=== PATIENT | male | born 1955 | race Caucasian/White ===

== ENCOUNTER 2025-05-12 10:01 | Inpatient (IN) | payer OTHER ==
[2025-05-12] MEDS ORDERED: ACETAMINOPHEN INJECTION 100 ML ONE (10:57)
[2025-05-12] MEDS: ACETAMINOPHEN 1000 MG/100 ML BAG IVPB ONE (10:58)
[2025-05-12] MEDS ORDERED: AMPICILLIN NA/SULBACTAM NA 3 GM/100 ML BAG IVPB ONE (11:05)
[2025-05-12] MEDS: AMPICILLIN NA/SULBACTAM NA 3 GM in SODIUM CHLORIDE 100 ML IVPB ONE (11:09)
[2025-05-12 11:22] LABS: ABSOLUTE IMMATURE GRANULOCYTES 0.07 x10^3/uL (0.0-0.031); BASOPHILS # 0.02 x10^3/uL (0.01-0.08); EOSINOPHIL % 0.6 % (0.8-7.0); EOSINOPHILS # 0.07 x10^3/uL (0.04-0.54); MCHC 32.9 g/dl (32.3-36.5); MEAN CELL VOLUME 91.0 fl (79.0-92.2); MEAN PLT VOLUME 9.5 fl (9.4-12.4); MONOCYTE # 0.80 x10^3/uL (0.30-0.82); MONOCYTE % 6.9 % (5.3-12.2); RDW 11.6 % (12.2-16.4)
[2025-05-12 12:20] LABS: CO2 27.0 mmol/L (21-32); GLUCOSE,RANDOM 185.0 mg/dL (74-106)
[2025-05-12 12:22] LABS: CREATININE 0.8 mg/dL (0.55-1.3); SGOT/AST 13.0 U/L (15-37); SGPT/ALT 23.0 U/L (13-61)
[2025-05-12 12:24] LABS: TOT PROT 7.0 g/dl (6.4-8.2)
[2025-05-12 12:25] LABS: ALK PHOS 77.0 U/L (45-117)
[2025-05-12 13:39] LABS: HIV INTERPRETATION NEGATIVE (NEGATIVE)
[2025-05-12 13:40] LABS: HCV DIAGNOSTIC IN-HOUSE W/RFLX NON-REACTIVE (NONREACTIVE)
[2025-05-12] MEDS: SODIUM CHLORIDE 1,000 ML IV SCH (14:21)
[2025-05-12 15:19] LABS: INR 1.23 (0.83-1.09); PROTHROMBIN TIME (PATIENT) 13.5 SEC (9.7-13.0)
[2025-05-12 15:22] LABS: ACTIVATED PTT 26.3 SECONDS (25.2-36.5)
[2025-05-12] MEDS ORDERED: ACETAMINOPHEN 325 MG TABLET (FP) ONE (15:41)
[2025-05-12] MEDS: ACETAMINOPHEN 325 MG TABLET (FP) PO PRN (15:43)
[2025-05-12] MEDS: PIPERACILLIN/TAZOB 4.5 GM 4.5 GM in DEXTROSE 5%-WATER 100 ML IVPB ONE (17:14)
[2025-05-12] MEDS: PIPERACILLIN/TAZOB 3.375 GM 3.375 GM in DEXTROSE 5%-WATER - 50 ML IVPB SCH (18:06)
[2025-05-12] MEDS: INSULIN ASPART SLIDING SCALE (NOVOLOG) 1 VIAL SQ SCH (18:12)
[2025-05-12 18:23] VITALS: BMI 30.3
[2025-05-12] MEDS: VANCOMYCIN/WATER 1250 MG 1,250 MG/250 ML BAG IVPB ONE (22:25)
[2025-05-13] MEDS: PIPERACILLIN/TAZOB 4.5 GM 4.5 GM in DEXTROSE 5%-WATER 100 ML IVPB SCH (01:22)
[2025-05-13] MEDS: PIPERACILLIN/TAZOB 3.375 GM 3.375 GM in DEXTROSE 5%-WATER - 50 ML IVPB SCH (07:34)
[2025-05-13 08:47] LABS: CO2 27.0 mmol/L (21-32); GLUCOSE,RANDOM 146.0 mg/dL (74-106)
[2025-05-13 08:50] LABS: CREATININE 0.8 mg/dL (0.55-1.3); SGOT/AST 9.0 U/L (15-37); SGPT/ALT 19.0 U/L (13-61)
[2025-05-13 08:52] LABS: MCHC 33.2 g/dl (32.3-36.5); MEAN CELL VOLUME 91.0 fl (79.0-92.2); MEAN PLT VOLUME 9.6 fl (9.4-12.4); RDW 11.6 % (12.2-16.4); TOT PROT 5.8 g/dl (6.4-8.2)
[2025-05-13 08:53] LABS: ALK PHOS 63.0 U/L (45-117)
[2025-05-13] MEDS: POTASSIUM PHOSPHATE 15 MM in SODIUM CHLORIDE 250 ML IVPB ONE (11:45)
[2025-05-13] MEDS ORDERED: morphine CARPU-JECT 2 MG/1 ML DISP.SYRIN IVPUSH PRN ×2 (13:56→15:30)
[2025-05-13] MEDS ORDERED: ACETAMINOPHEN 1000 MG/100 ML BAG IVPB PRN ×2 (13:59→15:30)
[2025-05-13] MEDS ORDERED: LIDOCAINE HCL/PF 2% SDV 5ML VIAL ONE (14:52)
[2025-05-13] MEDS ORDERED: ONDANSETRON 4 MG/2 ML VIAL ONE (14:52)
[2025-05-13] MEDS ORDERED: PROPOFOL 20 ML ONE (14:52)
[2025-05-13] MEDS ORDERED: MIDAZOLAM HCL 2 MG/2 ML SINGLE DOSE VIAL ONE (14:52)
[2025-05-13] MEDS ORDERED: DEXAMETHASONE SOD PHOSPHATE 4 MG/1 ML VIAL ONE (14:52)
[2025-05-13] MEDS: NAPH,MB-DB/K PH,MBDB POWDER PACKET PO SCH (14:58)
[2025-05-13] MEDS: cefOXitin SODIUM 2 GM VIAL (RESTRICTED TO ID) IVPB ONE (15:10)
[2025-05-13] MEDS ORDERED: cefOXitin SODIUM 2 GM VIAL (RESTRICTED TO ID) IVPB ONE (15:10)
[2025-05-13] MEDS ORDERED: ONDANSETRON 4 MG/2 ML VIAL IVPUSH PRN (15:49)
[2025-05-13] MEDS ORDERED: LACTATED RINGERS SOLUTION 1,000 ML IV SCH (16:00)
[2025-05-13] MEDS: SODIUM CHLORIDE 1,000 ML IV SCH (16:22)
[2025-05-13] MEDS ORDERED: KETOROLAC TROMETHAMINE 30 MG/1 ML VIAL ONE (16:25)
[2025-05-13] MEDS: KETOROLAC TROMETHAMINE 15 MG/ML VIAL IVPUSH SCH (16:29)
[2025-05-13] MEDS: AMOX TR/POT CLAV 875MG/125MG TABLETS (FP) PO SCH (17:31)
[2025-05-13] MEDS: INSULIN ASPART SLIDING SCALE (NOVOLOG) 1 VIAL SQ SCH (17:38)
[2025-05-13 17:41] VITALS: BP 96/57; PULSE 65; RESP 18; TEMP 98.2
[2025-05-13] MEDS ORDERED: PIPERACILLIN/TAZOB 4.5 GM 4.5 GM in DEXTROSE 5%-WATER 100 ML IVPB SCH (18:00)
[2025-05-13] MEDS ORDERED: NAPH,MB-DB/K PH,MBDB POWDER PACKET PO SCH (22:00)
[2025-05-14] MEDS ORDERED: ENOXAPARIN NA (PORCINE) 40 MG/0.4 ML DISP.SYRIN SQ SCH ×2 (10:00)
== END 2025-05-13 18:20 | disposition home or self-care (01) | DRG 603 ==
LOC: JER 10:01 → JERBED 13:44 → J8W 17:51
PROVIDERS: ADMIT Internal Medicine; ATTEND Nurse Practitioner Family
PROC: 0Y910ZZ Drainage of Left Buttock, Open Approach (ICD-10-PCS; principal; 2025-05-13 16:00)
DX: L02.31 Cutaneous abscess of buttock (principal); R65.10 Systemic inflammatory response syndrome (SIRS) of non-infectious origin without acute organ dysfunction; E11.9 Type 2 diabetes mellitus without complications; I10 Essential (primary) hypertension; E11.65 Type 2 diabetes mellitus with hyperglycemia
CPT/HCPCS: 36415; 72193-TC; 80053; 82962; 83036; 83735; 84100; 85025; 85027; 85610; 85651; 85730; 86140; 86803; 86850; 86900; 86901; 87040; 87070; 87205; 87389; 93005; 93010; 94760; 99285-25; Q9967